=== PATIENT | female | born 2000 | race Caucasian/White ===

== ENCOUNTER 2021-05-19 11:47 | Emergency (ER) | payer SELFPAY ==
[~2021-05-19] VITALS: Ht 170 cm; Wt 54.0 kg
[2021-05-19 12:10] VITALS: BP 131/88
[2021-05-19] MEDS ORDERED: PRD50T PO ×5 (12:38→13:07)
[2021-05-19] MEDS ORDERED: AZIT250T12 PO ×5 (12:38→13:07)
--- NOTE | 2021-05-19 12:38 | ED Cough/URI ---
General Chief Complaint: Cough/Cold/Flu Symptoms Stated Complaint: CONGESTION, SOB Nursing Triage Note: ARRIVED VIA AMB TO TRIAGE. COLD LIKE SX SINCE THRUSDAY. THINKS IT IS ALLERGIES. DENIES FEVER. Source: patient Exam Limitations: no limitations (CAMERON OROPEZA) History of Present Illness Date Seen by Provider: May 19, 2021 Time Seen by Provider: 12:34 Initial Comments Patient is a 21-year-old female who presents ED with cough, shortness of breath, nasal congestion, sinus pressure. She reports symptoms over the past 2 to 3 days. History of asthma. Has been using her nebulizer treatment with improvement. She does have some chest tightness with worsening cough at night. Mild wheezing. Denies fever, vomiting, diarrhea, body aches. She reports similar symptoms in the past that usually exacerbates her asthma. She refusing any Covid or influenza swab at this time. Did discuss breathing treatment to help with her wheezing and chest tightness patient refused and states she has nebulizer treatment at home. Requesting a steroid and antibiotic as this typically improves her symptoms. Denies headache, dizziness, visual changes, sore throat, ear pain, Pedro pain or concern for . (CAMERON OROPEZA) Allergies and Home Medications Allergies Coded Allergies: No Known Drug Allergies (Unverified , 05/19/21) Patient Home Medication List Home Medication List Reviewed: Yes (CAMERON OROPEZA) Azithromycin (Azithromycin) 250 Mg Tablet, 250 MG PO UD Prescribed by: JAMESON LEMON on 05/19/21 1307 Prednisone (Prednisone) 50 Mg Tab, 50 MG PO DAILY Prescribed by: JAMESON LEMON on 05/19/21 1307 Discontinued Medications Azithromycin (Azithromycin) 250 Mg Tablet, 250 MG PO UD Prescribed by: JAMESON LEMON on 05/19/21 1238 Azithromycin (Azithromycin) 250 Mg Tablet, 250 MG PO UD Prescribed by: JAMESON LEMON on 05/19/21 1242 Prednisone (Prednisone) 50 Mg Tab, 50 MG PO DAILY Prescribed by: JAMESON LEMON on 05/19/21 1238 Prednisone (Prednisone) 50 Mg Tab, 50 MG PO DAILY Prescribed by: JAMESON LEMON on 05/19/21 1242 Review of Systems Review of Systems Constitutional: No chills, No fever, No malaise, No weakness EENTM: nose congestion; No ear pain, No blurred vision, No eye pain, No vision loss Respiratory: cough, short of breath, wheezing Cardiovascular: No chest pain, No edema, No Hx of Intervention Gastrointestinal: No abdominal pain, No diarrhea, No nausea, No vomiting Genitourinary: No decreased output, No discharge Musculoskeletal: No back pain, No joint pain Skin: No see HPI, No change in color, No change in hair/nails (CAMERON OROPEZA) All Other Systems Reviewed Negative Unless Noted: Yes (CAMERON OROPEZA) Past Uvicver-Cbinle-Gizctt Hx Patient Social History Smoking Status: Never a Smoker Substance use?: No Alcohol Use?: No (CAMERON OROPEZA) Physical Exam Vital Signs - First Documented 05/19/21 12:10 Temp 36.7 Pulse 93 Resp 16 B/P (MAP) 131/88 (102) Pulse Ox 93 O2 Delivery Room Air (KATHRINE LEIGH MD) Capillary Refill : Less Than 3 Seconds (CAMERON OROPEZA) Height: '" Weight: lbs. oz. kg; 18.00 BMI Method: General Appearance: WD/WN, no apparent distress HEENT: PERRL/EOMI, normal ENT inspection, TMs normal, pharynx normal Neck: non-tender, full range of motion, supple Respiratory: chest non-tender, lungs clear, no respiratory distress, no access ory muscle use, wheezing Cardiovascular: no edema, no gallop, no JVD Gastrointestinal: normal bowel sounds, non tender, soft, no organomegaly Extremities: normal range of motion, non-tender, normal inspection, no pedal edema Skin: normal color, warm/dry (CAMERON OROPEZA) Progress/Results/Core Measures Suspected Sepsis SIRS Temperature: Pulse: 93 Respiratory Rate: 16 Blood Pressure 131 /88 Mean: 102 (CAMERON OROPEZA) Results/Orders Vital Signs/I&O 05/19/21 12:10 Temp 36.7 Pulse 93 Resp 16 B/P (MAP) 131/88 (102) Pulse Ox 93 O2 Delivery Room Air (KATHRINE LEIGH MD) Vital Signs/I&O Capillary Refill : Less Than 3 Seconds (CAMERON OROPEZA) Blood Pressure Mean: 102 Departure Communication (Admissions) Patient with mild wheezing throughout. Recommended albuterol nebulizer treatment and to check for Covid. She refused at this time. She does states she has nebulizers at home that she has been using with improvement. Concerning for asthma exacerbation. She is requesting prednisone and Z-Maxime as she has a history of bronchitis and pneumonia. Discussed with patient this is likely viral in nature and would likely benefit with steroids and continue breathing treatments. Discussed outpatient swab to rule out Covid or influenza. Continue with nebulizer treatments. She does have a rescue inhaler. Will discharge with Z-Maxime for worsening symptoms. Return precaution were discussed with patient. He was slightly tachycardic but was not hypoxic. Wheezing noted throughout. No respiratory distress (CAMERON OROPEZA) Impression Primary Impression: Upper respiratory infection Additional Impression: Asthma Disposition: HOME, SELF-CARE Condition: Stable Departure-Patient Inst. Decision time for Depature: 12:37 (CAMERON OROPEZA) Referrals: [facility] (PCP/Family) Primary Care Physician Patient Instructions: Asthma, Adult (DC), Upper Respiratory Infection ED Add. Discharge Instructions: If worsening shortness of breath and cough return back to ED for further evaluation All discharge instructions reviewed with patient and/or family. Voiced understjanie araujo. Scripts Prednisone (Prednisone) 50 Mg Tab 50 MG PO DAILY for 5 Days, #5 TAB Prov: CAMERON OROPEZA 05/19/21 Azithromycin (Azithromycin) 250 Mg Tablet 250 MG PO UD, #6 TAB TAKE 2 TABLETS ON DAY ONE THEN TAKE 1 TABLET DAILY FOR FOUR MORE DAYS Prov: CAMERON OROPEZA 05/19/21 ATTENDING PHYSICIAN NOTE: I was physically present as attending physician in the emergency department during the care of this patient, but I was not directly involved in the decision making or delivery of care for this patient. (KATHRINE LEIGH MD) CAMERON OROPEZA May 19, 2021 12:38 KATHRINE LEIGH MD May 19, 2021 20:16
== END 2021-05-19 13:20 | disposition home or self-care (01) ==
LOC: ER 11:51
DX: J06.9 Acute upper respiratory infection, unspecified (principal); J45.909 Unspecified asthma, uncomplicated
CPT/HCPCS: 99283

== ENCOUNTER 2023-05-09 13:57 | Inpatient (IN) | payer OTHER ==
[~2023-05-09] VITALS: Ht 167 cm; Wt 54.0 kg
[~2023-05-09 13:57] MED LIST: AZIT250T12 PO; PRD50T PO
[2023-05-09] MEDS ORDERED: NS IV 1000 ML 1,000 ML IV STA (14:15)
[2023-05-09 14:24] LABS: BASOPHILS # (AUTO) 0.1 10^3/uL (0.0-0.1); BASOPHILS % (AUTO) 1 % (0-10); EOSINOPHILS # (AUTO) 0.1 10^3/uL (0.0-0.3); EOSINOPHILS % (AUTO) 0 % (0-10); HEMATOCRIT 47 % (35-52); HEMOGLOBIN 16.8 g/dL (11.5-16.0); LYMPHOCYTES % (AUTO) 15 % (12-44); MEAN CORPUSCULAR HEMOGLOBIN 32 pg (25-34); MEAN CORPUSCULAR HGB CONC 36 g/dL (32-36); MEAN CORPUSCULAR VOLUME 91 fL (80-99); MEAN PLATELET VOLUME 11.1 fL (9.0-12.2); MONOCYTES # (AUTO) 1.1 10^3/uL (0.0-1.0); MONOCYTES % (AUTO) 8 % (0-12); NEUTROPHILS # (AUTO) 10.1 10^3/uL (1.8-7.8); NEUTROPHILS % (AUTO) 76 % (42-75); PLATELET COUNT 335 10^3/uL (130-400); WHITE BLOOD COUNT 13.3 10^3/uL (4.3-11.0)
[2023-05-09] MEDS ORDERED: LACTATED RINGERS 1,000 ML 1,000 ML IV STA ×2 (14:24→14:46)
--- NOTE | 2023-05-09 14:24 | ED General ---
General Chief Complaint: General Problems/Pain Stated Complaint: SOA/WEAKNESS/HIGH HEART RATE Nursing Triage Note: PT SENT TO THIS ED W/ C/O SOB, VASQUEZ ET WEAKNESS ONSET X2 MOS, WORSE TODAY. PT REPORTS 20# WEIGHT LOSS, INCREASED THIRST ET APPETITE. NO OTHER C/O VOICED Source of Information: Patient Exam Limitations: No Limitations History of Present Illness Date Seen by Provider: May 09, 2023 Time Seen by Provider: 14:22 Initial Comments Patient is a 23-year-old female who presents to ED for short of breath, chest tightness, headache, weakness. Patient states this morning she woke up started feeling shortness of breath and chest tightness with exertion. She noted her heart rate to be fast. She states states she has noted a 20 pound weight loss over the past month. Increased thirst. Increased urination. She states she has been attempting to eat and drink. She was seen at [facility] and was sent to the ED for further evaluation. Recently traveled from [place] for [employer]. She found to have a blood sugar over 400 here in the ED. She denies of any current chest pain or shortness of breath. No cough, flulike symptoms. No history of cancer. Family history of diabetes. She denies of any current chest pain, Pedro pain, visual changes, unilateral muscle weakness, vomiting, diarrhea, or sensory changes. Last menstrual cycle was late last month. She states she had a negative COVID influenza. Allergies and Home Medications Allergies Coded Allergies: No Known Drug Allergies (Unverified , 05/19/21) Patient Home Medication List Home Medication List Reviewed: Yes Azithromycin (Azithromycin) 250 Mg Tablet, 250 MG PO UD Prescribed by: JAMESON LEMON on 05/19/21 5707 Prednisone (Prednisone) 50 Mg Tab, 50 MG PO DAILY Prescribed by: JAMESON LEMON on 05/19/21 1307 Review of Systems Review of Systems Constitutional: No chills, No diaphoresis, No fever; malaise, weakness EENTM: No hearing loss, No ear pain, No double vision Respiratory: No cough, No dyspnea on exertion; short of breath Cardiovascular: chest pain Gastrointestinal: No abdominal pain, No diarrhea, No nausea, No vomiting Genitourinary: No decreased output, No discharge, No dysuria; frequency Musculoskeletal: No back pain Skin: No change in color All Other Systems Reviewed Negative Unless Noted: Yes Past Mluedtv-Iveedc-Ukrtsm Hx Patient Social History Tobacco Use?: No Use of E-Cig and/or Vaping dev: No Substance use?: No Alcohol Use?: Yes Alcohol Frequency: Once in a while Pt feels they are or have been: No Physical Exam Vital Signs Vital Signs - First Documented 05/09/23 14:03 Temp 36.7 Pulse 144 Resp 24 B/P (MAP) 142/104 (117) Pulse Ox 94 O2 Delivery Room Air Capillary Refill : Less Than 3 Seconds Height, Weight, BMI Height: '" Weight: lbs. oz. kg; 19.00 BMI Method: General Appearance: No Apparent Distress, WD/WN Eyes: Bilateral Eye Normal Inspection, Bilateral Eye PERRL, Bilateral Eye EOMI HEENT: PERRL/EOMI, TMs Normal, Normal ENT Inspection, Pharynx Normal Neck: Full Range of Motion, Normal Inspection, Non Tender, Supple Respiratory: Chest Non Tender, Lungs Clear, Normal Breath Sounds, No Accessory Muscle Use, No Respiratory Distress Cardiovascular: No Gallop, No JVD, No Murmur, Tachycardia Gastrointestinal: Normal Bowel Sounds, No Organomegaly, No Pulsatile Mass, Non Tender Back: Normal Inspection, No CVA Tenderness Extremity: Normal Capillary Refill, Normal Inspection, Normal Range of Motion, Non Tender Neurologic/Psychiatric: Alert, Oriented x3, No Motor/Sensory Deficits, Normal Mood/Affect, 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 Skin: Normal Color, Warm/Dry Focused Exam Lactate Level 05/09/23 14:13: Lactic Acid Level 1.51 Lactic Acid Level Laboratory Tests Test 05/09/23 14:13 Lactic Acid Level 1.51 MMOL/L (0.50-2.00) Progress/Results/Core Measures Suspected Sepsis SIRS Temperature: Pulse: 144 Respiratory Rate: 24 Laboratory Tests 05/09/23 14:13: White Blood Count 13.3H Blood Pressure 142 /104 Mean: 117 05/09/23 14:13: Lactic Acid Level 1.51 Laboratory Tests 05/09/23 14:13: Creatinine 1.09, Platelet Count 335, Total Bilirubin 0.6 Results/Orders Lab Results Laboratory Tests Test 05/09/23 14:13 05/09/23 14:30 05/09/23 15:36 Range/Units White Blood Count 13.3 H 4.3-11.0 10^3/uL Red Blood Count 5.18 H 3.80-5.11 10^6/uL Hemoglobin 16.8 H 11.5-16.0 g/dL Hematocrit 47 35-52 % Mean Corpuscular Volume 91 80-99 fL Mean Corpuscular Hemoglobin 32 25-34 pg Mean Corpuscular Hemoglobin Concent 36 32-36 g/dL Red Cell Distribution Width 11.8 10.0-14.5 % Platelet Count 335 130-400 10^3/uL Mean Platelet Volume 11.1 9.0-12.2 fL Immature Granulocyte % (Auto) 1 % Neutrophils (%) (Auto) 76 H 42-75 % Lymphocytes (%) (Auto) 15 12-44 % Monocytes (%) (Auto) 8 0-12 % Eosinophils (%) (Auto) 0 0-10 % Basophils (%) (Auto) 1 0-10 % Neutrophils # (Auto) 10.1 H 1.8-7.8 10^3/uL Lymphocytes # (Auto) 2.0 1.0-4.0 10^3/uL Monocytes # (Auto) 1.1 H 0.0-1.0 10^3/uL Eosinophils # (Auto) 0.1 0.0-0.3 10^3/uL Basophils # (Auto) 0.1 0.0-0.1 10^3/uL Immature Granulocyte # (Auto) 0.1 0.0-0.1 10^3/uL Sodium Level 131 L 135-145 MMOL/L Potassium Level 3.6 3.6-5.0 MMOL/L Chloride Level 106 98-107 MMOL/L Carbon Dioxide Level 5 *L 21-32 MMOL/L Anion Gap 20 H 5-14 MMOL/L Blood Urea Nitrogen 5 L 7-18 MG/DL Creatinine 1.09 0.60-1.30 MG/DL Estimat Glomerular Filtration Rate 73 BUN/Creatinine Ratio 5 Glucose Level 413 *H 70-105 MG/DL Glucometer 403 *H 350 H 70-110 MG/DL Lactic Acid Level 1.51 0.50-2.00 MMOL/L Calcium Level 8.7 8.5-10.1 MG/DL Corrected Calcium 8.5-10.1 MG/DL Magnesium Level 2.0 1.6-2.4 MG/DL Total Bilirubin 0.6 0.1-1.0 MG/DL Aspartate Amino Transf (AST/SGOT) 14 5-34 U/L Alanine Aminotransferase (ALT/SGPT) 16 0-55 U/L Alkaline Phosphatase 94 40-136 U/L Troponin I < 0.028 <0.028 NG/ML C-Reactive Protein High Sensitivity 0.17 0.00-0.50 MG/DL Total Protein 8.7 H 6.4-8.2 GM/DL Albumin 4.9 H 3.2-4.5 GM/DL Lipase 27 8-78 U/L Beta-Hydroxybutyrate (Chem panel) 8.20 H 0.00-0.27 MMOL/L Thyroid Stimulating Hormone (TSH) 1.20 0.35-4.94 UIU/ML Urine Color YELLOW Urine Clarity CLEAR Urine pH 5.0 5-9 Urine Specific Kennan >=1.030 1.016-1.022 Urine Protein 3+ H NEGATIVE Urine Glucose (UA) 2+ H NEGATIVE Urine Ketones 4+ H NEGATIVE Urine Nitrite NEGATIVE NEGATIVE Urine Bilirubin 1+ H NEGATIVE Urine Urobilinogen 0.2 < = 1.0 MG/DL Urine Leukocyte Esterase NEGATIVE NEGATIVE Urine RBC (Auto) 2+ H NEGATIVE Urine RBC 5-10 H /HPF Urine WBC 10-25 H /HPF Urine Squamous Epithelial Cells 0-2 /HPF Urine Crystals NONE /LPF Urine Bacteria FEW H /HPF Urine Casts PRESENT /LPF Urine Hyaline Casts 0-2 H /LPF Urine Granular Casts 2-5 H /LPF Urine Mucus NEGATIVE /LPF Urine Culture Indicated YES Urine Test NEGATIVE NEGATIVE Arterial Blood pH 7.15 *L 7.37-7.43 Arterial Blood Partial Pressure CO2 12 *L 35-45 MMHG Arterial Blood Partial Pressure O2 71 L 79-93 MMHG Arterial Blood HCO3 4 *L 23-27 MMOL/L Arterial Blood Total CO2 4.6 *L 21.0-31.0 MMOL/L Arterial Blood Oxygen Saturation 96 94-100 % Arterial Blood Base Excess -22.2 L -2.5-2.5 MMOL/L Blood Gas Ventilator Setting NO Blood Gas Inspired Oxygen UNK Urine Opiates Screen NEGATIVE NEGATIVE Urine Oxycodone Screen NEGATIVE NEGATIVE Urine Methadone Screen NEGATIVE NEGATIVE Urine Barbiturates Screen NEGATIVE NEGATIVE Ur Tricyclic Antidepressants Screen NEGATIVE NEGATIVE Urine Phencyclidine Screen NEGATIVE NEGATIVE Urine Amphetamines Screen NEGATIVE NEGATIVE Urine Methamphetamines Screen NEGATIVE NEGATIVE Urine Benzodiazepines Screen NEGATIVE NEGATIVE Urine Cocaine Screen NEGATIVE NEGATIVE Urine Cannabinoids Screen NEGATIVE NEGATIVE Micro Results Microbiology 05/09/23 Blood Culture - Preliminary, Resulted My Orders Orders - CAMERON OROPEZA PA Arterial Blood Gas (05/09/23 14:10) Accucheck Stat ONCE (05/09/23 14:13) Ekg Tracing (05/09/23 14:13) Cbc And Automated Diff (05/09/23 14:15) Comprehensive Metabolic Panel (05/09/23 14:15) Lipase (05/09/23 14:15) Beta Hydroxybutyrate (05/09/23 14:15) Urinalysis (05/09/23 14:15) Hcg,Qualitative Urine (05/09/23 14:15) Hs C Reactive Protein (05/09/23 14:15) Lactic Acid Analyzer (05/09/23 14:15) Ns Iv 1000 Ml (Ns Iv 1000 Ml) (05/09/23 14:15) Magnesium (05/09/23 14:15) Chest 1 View, Ap/Pa Only (05/09/23 14:15) Drug Screen Stat (Urine) (05/09/23 14:21) Lactated Ringers 1,000 Ml (Lactated Ring (05/09/23 14:24) Thyroid Stimulating Hormone (05/09/23 14:26) Blood Culture (05/09/23 14:26) Troponin I Radha (05/09/23 14:27) Arterial Blood Draw - Obtain (05/09/23 ) Lactated Ringers 1,000 Ml (Lactated Ring (05/09/23 14:46) Urine Culture (05/09/23 14:30) Ceftriaxone Iv/Im (Ceftriaxone Iv/Im) (05/09/23 14:56) Lactated Ringers 1,000 Ml (Lactated Ring (05/09/23 15:12) Vital Signs/I&O 05/09/23 14:03 Temp 36.7 Pulse 144 Resp 24 B/P (MAP) 142/104 (117) Pulse Ox 94 O2 Delivery Room Air Capillary Refill : Less Than 3 Seconds Blood Pressure Mean: 117 Departure Communication (PCP) Patient is a 23-year-old female presents to ED for frequent urination, weight loss over the past month, shortness of breath and chest tightness today. Chest tightness shortness of breath started this morning. She was found to be tachycardic at [facility] and sent to the ED. Patient with a heart rate of 130 to 140 bpm on arrival. She was not hypoxic. No recent long travels or surgeries. Denies of any leg pain. Patient is not on control. Low risk factors for PE. No recent cough or flulike symptoms. EKG sinus tachycardia 128 bpm. Chest x-ray negative for pneumonia, pneumothorax. She does appear thin habitus. Blood sugar over 400 on arrival. DKA workup was initiated. EKG and chest x-ray for chest pain. She tested negative for COVID influenza at the clinic. She does not currently have a primary care physician. CBC of 13. Normal hemoglobin. Chemistry showed sodium 131. Anion gap of 20. Normal kidney function liver function and lactic acid. Beta hydroxybutyrate of 8. ABG was ordered. pH of 7.15, pCO2 12, bicarb of 4. Patient appears to be in DKA. Urinalysis positive for ketones and blood sugar. Questionable UTI. Did receive Rocephin 1gm and pending blood culture. Started IV hydration at this time. patient was discussed with Dr. Villa hospitalist who agreed to accept the patient to ICU. Will start on insulin drip upstairs. Patient agrees with plan of action. Patient heart rate did improve into the teens. Normal blood pressure. Oxygen 100 percent on room air. Impression Primary Impression: DKA (diabetic ketoacidosis) Disposition: ADMITTED INPATIENT Condition: Stable Admissions Decision to Admit Reason: Admit from ER (General) Decision to Admit/Date: May 09, 2023 Time/Decision to Admit Time: 15:14 Departure-Patient Inst. Referrals: [facility] (PCP/Family) Primary Care Physician CAMERON OROPEZA May 09, 2023 14:24
[2023-05-09 14:35] LABS: ALBUMIN 4.9 GM/DL (3.2-4.5); CHLORIDE 106 MMOL/L (98-107); POTASSIUM 3.6 MMOL/L (3.6-5.0); SODIUM 131 MMOL/L (135-145)
[2023-05-09 14:36] LABS: CALCIUM 8.7 MG/DL (8.5-10.1)
[2023-05-09 14:37] LABS: TOTAL PROTEIN 8.7 GM/DL (6.4-8.2)
[2023-05-09 14:39] LABS: BILIRUBIN,TOTAL 0.6 MG/DL (0.1-1.0)
[2023-05-09 14:39] LABS: ABG BASE EXCESS -22.2 MMOL/L (-2.5-2.5); ABG OXYGEN SATURATION 96 % (94-100); ABG PO2 71 MMHG (79-93)
[2023-05-09 14:41] LABS: ALKALINE PHOSPHATASE 94 U/L (40-136); CREATININE SERUM 1.09 MG/DL (0.60-1.30)
[2023-05-09 14:41] LABS: ABG PCO2 12 MMHG (35-45); ABG PH 7.15 (7.37-7.43)
[2023-05-09 14:42] LABS: ABG TCO2 4.6 MMOL/L (21.0-31.0); VENTILATOR NO
[2023-05-09 14:42] LABS: BUN/CREATININE RATIO 5
[2023-05-09 14:43] LABS: CARBON DIOXIDE 5 MMOL/L (21-32); GLUCOSE 413 MG/DL (70-105)
[2023-05-09 14:44] LABS: ALANINE AMINOTRANSFERASE 16 U/L (0-55); GFR ESTIMATED 73
[2023-05-09 14:45] LABS: LIPASE 27 U/L (8-78)
--- NOTE | 2023-05-09 14:46 | Diagnostic Imaging Report ---
EXAMINATION: Chest 1 view HISTORY: Chest pain, shortness of breath. COMPARISON: None available. FINDINGS: Heart size and pulmonary vasculature are normal. The lungs are clear without consolidation, pleural effusion, or pneumothorax. The osseous structures are intact. IMPRESSION: 1. No acute radiographic abnormality in the chest. Dictated by: Dictated on workstation # [id number]
[2023-05-09 14:52] LABS: CLARITY,URINE CLEAR; COLOR,URINE YELLOW
[2023-05-09 14:53] LABS: BACTERIA,URINE FEW /HPF; BILIRUBIN,URINE 1+ (NEGATIVE); GLUCOSE, URINE (UA) 2+ (NEGATIVE); HYALINE CASTS, URINE 0-2 /LPF; KETONES,URINE 4+ (NEGATIVE); LEUKOCYTE ESTERASE ,URINE NEGATIVE (NEGATIVE); NITRITE,URINE NEGATIVE (NEGATIVE); PROTEIN,URINE 3+ (NEGATIVE); SQUAMOUS EPITHELIAL CELL,UR 0-2 /HPF
[2023-05-09 14:54] LABS: HCG,QUALITATIVE URINE NEGATIVE (NEGATIVE)
[2023-05-09] MEDS ORDERED: cefTRIAXone IV/IM 1,000 MG in NS (IVPB) 50 ML 50 ML IV STA (14:56)
[2023-05-09 14:57] LABS: AMPHETAMINE SCREEN, URINE NEGATIVE (NEGATIVE); BARBITURATE SCREEN URINE NEGATIVE (NEGATIVE); CANNABINOID SCREEN, URINE NEGATIVE (NEGATIVE); COCAINE SCREEN URINE NEGATIVE (NEGATIVE); METHADONE STAT NEGATIVE (NEGATIVE); OPIATE SCREEN URINE NEGATIVE (NEGATIVE); OXYCODONE STAT NEGATIVE (NEGATIVE); TRICYCLIC ANTIDEPRESSANTS SCRE NEGATIVE (NEGATIVE)
[2023-05-09] MEDS ORDERED: LACTATED RINGERS 1,000 ML 1,000 ML IV ONE (15:12)
[2023-05-09 16:13] VITALS: BP 122/88
[2023-05-09] MEDS ORDERED: NS IV 1000 ML 1,000 ML IV SCH ×2 (16:15→16:45)
--- NOTE | 2023-05-09 16:42 | Tele-ICU Progress Note ---
Subjective Date Seen by a Provider: May 09, 2023 Time Seen by a Provider: 16:42 Subjective/Events-last exam (Tele-ICU Physician , consultation as per request of PCP Service provided via interactive audio and video telecommunications E-CARE system to a patient admitted to ICU bed in [facility]. Available chart/ vitals / labs / Images reviewed H&P is from ER notes Patient's information available about PMH, Shx, Fhx allergy reviewed inEMR. ROS as per chart and RN report Now in ICU, hemodynamically stable Video assessment done using teleICU camera, rest of exam as per RN Discussed with RN. Hospital course: DKA , newlly dx DM *Insulin drip, continue to monitor for resolution of acidosis, AG and electrolytes. Continue hydration. Leukocytosis - possible UT - empiric ABX given PseudoHyponatremia, dehydration - follow with IVF VTE Prophylaxis: Stress Ulcer Prophylaxis: Plans in collaboration with bedside consultants and IM MDs. Discussed with RN to reach out if any questions or concerns A total of10 minutes of critical care time was devoted to this patient today, required to treat and/or prevent further deterioration of critical care condition ( as above ) I am remotely monitoring this patient from another state. I am unable to do the bedside exam, and history/physical and pertinent information is taken from other notes in the computer and bedside staff. . Sepsis Event Evaluation Height, Weight, BMI Height: '" Weight: lbs. oz. kg; 19.00 BMI Method: Focused Exam Lactate Level 05/09/23 14:13: Lactic Acid Level 1.51 Lactic Acid Level Laboratory Tests Test 05/09/23 14:13 Lactic Acid Level 1.51 MMOL/L (0.50-2.00) Exam Exam Patient acknowledged, consented, and participated in this virtual visit which was conducted using real time audio/video Vital Signs Date Time Temp Pulse Resp B/P (MAP) Pulse Ox O2 Delivery O2 Flow Rate FiO2 05/09/23 16:32 36.6 05/09/23 16:24 127 05/09/23 16:13 122 20 122/88 99 Room Air 05/09/23 14:03 36.7 144 24 142/104 (117) 94 Room Air Height & Weight Height: '" Weight: lbs. oz. 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
[2023-05-09 16:47] LABS: HEMATOCRIT 41 % (35-52); HEMOGLOBIN 14.9 g/dL (11.5-16.0); MEAN CORPUSCULAR HEMOGLOBIN 33 pg (25-34); MEAN CORPUSCULAR HGB CONC 36 g/dL (32-36); MEAN CORPUSCULAR VOLUME 90 fL (80-99); MEAN PLATELET VOLUME 11.2 fL (9.0-12.2); PLATELET COUNT 229 10^3/uL (130-400); WHITE BLOOD COUNT 10.4 10^3/uL (4.3-11.0)
[2023-05-09] MEDS: POTASSIUM CL 10MEQ/50ML IVPB 50 ML IV SCH ×4 (16:55→20:21)
[2023-05-09] MEDS: D5 1/2 NS 1,000 ML IV 1,000 ML IV SCH (16:57)
[2023-05-09] MEDS: 1/2 NS IV SOLUTION 1000 ML 1,000 ML IV SCH (16:57)
[2023-05-09 18:33] LABS: BUN/CREATININE RATIO 5; CALCIUM 7.6 MG/DL (8.5-10.1); CHLORIDE 113 MMOL/L (98-107); CREATININE SERUM 0.87 MG/DL (0.60-1.30); GFR ESTIMATED 96; GLUCOSE 340 MG/DL (70-105); PHOSPHORUS 2.3 MG/DL (2.3-4.7); POTASSIUM 3.6 MMOL/L (3.6-5.0); SODIUM 136 MMOL/L (135-145)
[2023-05-09 18:46] LABS: CARBON DIOXIDE < 5 MMOL/L (21-32)
[2023-05-09] MEDS ORDERED: CATHETER FLUSH 10 ML SYR IVP PRN (20:30)
[2023-05-09] MEDS ORDERED: cefTRIAXone IV/IM 1,000 MG in NS (IVPB) 50 ML 50 ML IV SCH (21:00)
[2023-05-09 21:02] LABS: POTASSIUM 3.2 MMOL/L (3.6-5.0)
[2023-05-09 21:03] LABS: CALCIUM 7.4 MG/DL (8.5-10.1)
[2023-05-09 21:07] LABS: CREATININE SERUM 1.02 MG/DL (0.60-1.30)
[2023-05-09] MEDS: CATHETER FLUSH 10 ML SYR IVP SCH (22:00)
[2023-05-10] MEDS: POTASSIUM CL 10MEQ/50ML IVPB 50 ML IV SCH ×9 (00:28→19:13)
[2023-05-10] MEDS: 1/2 NS IV SOLUTION 1000 ML 1,000 ML IV SCH ×7 (00:56→22:25)
[2023-05-10] MEDS: D5 1/2 NS 1,000 ML IV 1,000 ML IV SCH ×3 (01:11→08:52)
[2023-05-10 01:12] LABS: CALCIUM 7.6 MG/DL (8.5-10.1)
[2023-05-10 01:16] LABS: CREATININE SERUM 0.73 MG/DL (0.60-1.30)
[2023-05-10 05:18] LABS: POTASSIUM 2.9 MMOL/L (3.6-5.0)
[2023-05-10 05:19] LABS: CALCIUM 7.4 MG/DL (8.5-10.1)
[2023-05-10 05:24] LABS: CREATININE SERUM 0.65 MG/DL (0.60-1.30)
[2023-05-10] MEDS ORDERED: POTASSIUM CL 10MEQ/50ML IVPB 400 ML IV ONE (05:25)
[2023-05-10] MEDS ORDERED: NS IV 500 ML 500 ML IV PRN (05:30)
[2023-05-10 05:37] LABS: BASOPHILS % (AUTO) 1 % (0-10); EOSINOPHILS # (AUTO) 0.2 10^3/uL (0.0-0.3); EOSINOPHILS % (AUTO) 3 % (0-10); HEMATOCRIT 31 % (35-52); HEMOGLOBIN 11.7 g/dL (11.5-16.0); LYMPHOCYTES # (AUTO) 1.7 10^3/uL (1.0-4.0); LYMPHOCYTES % (AUTO) 25 % (12-44); MEAN CORPUSCULAR HEMOGLOBIN 33 pg (25-34); MEAN CORPUSCULAR HGB CONC 38 g/dL (32-36); MEAN CORPUSCULAR VOLUME 87 fL (80-99); MEAN PLATELET VOLUME 11.6 fL (9.0-12.2); MONOCYTES # (AUTO) 0.7 10^3/uL (0.0-1.0); MONOCYTES % (AUTO) 10 % (0-12); NEUTROPHILS # (AUTO) 4.2 10^3/uL (1.8-7.8); NEUTROPHILS % (AUTO) 61 % (42-75); PLATELET COUNT 206 10^3/uL (130-400); WHITE BLOOD COUNT 6.9 10^3/uL (4.3-11.0)
[2023-05-10] MEDS ORDERED: MAGNESIUM 1 GM/100 ML IVPB 600 ML IV ONE (05:51)
[2023-05-10] MEDS: MAGNESIUM 1 GM/100 ML IVPB 100 ML IV SCH ×5 (06:03→19:13)
[2023-05-10] MEDS: CATHETER FLUSH 10 ML SYR IVP SCH ×3 (06:04→22:25)
[2023-05-10] MEDS: POTASSIUM CHLORIDE 20 MEQ TABLET PO SCH (07:00)
--- NOTE | 2023-05-10 09:19 | History & Physical-Hospitalist ---
History of Present Illness HPI/Chief Complaint Patient is a 23-year-old female with no significant past medical history who presented to the emergency department due to fatigue, shortness of breath, weight loss. She reports her symptoms been going on for over a month and she has lost about 20 pounds. She now states that she is aware these are associated with diabetes but just thought that she had a cold or even COVID. She decided to see her doctor in [place] this week after the but kept getting worse yesterday and so her mom brought her to urgent care. She is found to be quite hyperglycemic and was sent to the emergency department from there. She was found to be in DKA here which is new onset. She was started on insulin drip and admitted to the ICU. This morning she reports feeling much better though is still tired. Source: patient Date Seen 05/10/23 Time Seen by a Provider: 09:14 Attending Physician [facility] PCP Admitting Physician: Cara Villa MD Attending Physician: Cara Villa MD Referring Physician Date of Admission May 09, 2023 at 15:57 Home Medications & Allergies Home Medications Reviewed patient Home Medication Reconciliation performed by pharmacy medication reconciliations bindery technician and/or nursing. Patients Allergies have been reviewed. Allergies Allergies Coded Allergies No Known Drug Allergies ([id number]/6/21) Past Gsobuaa-Vvmxgr-Burjqm Hx Patient Social History Marrital Status: Tobacco Use?: No Smoking Status: Never a Smoker Use of E-Cig and/or Vaping dev: Yes E-Cig or Vaping type used: Nicotine Use of E-Cig and/or Vaping Edwardo: Current Someday User Substance use?: No Alcohol Use?: Yes Alcohol Frequency: Rarely Pt feels they are or have been: No Immunizations Up To Date Tetanus Booster (TDap): Unknown Hepatitis A: Yes Hepatitis B: Yes Current Status status: No status: No Advance Directives: No Communicates: Verbally Primary Language: [place] Citizen Preferred Spoken Language: [place] Citizen Is interpretation needed?: No Sensory deficits: Vision impairment Implanted or Applied Medical D: None Review of Systems Constitutional: see HPI Physical Exam Physical Exam Vital Signs Vital Signs - First Documented 05/09/23 14:03 Temp 36.7 Pulse 144 Resp 24 B/P (MAP) 142/104 (117) Pulse Ox 94 O2 Delivery Room Air Capillary Refill : Less Than 3 Seconds Height, Weight, BMI Height: '" Weight: lbs. oz. kg; 19.21 BMI Method: General Appearance: No Apparent Distress, WD/WN Respiratory: Lungs Clear, No Respiratory Distress Cardiovascular: Regular Rate, Rhythm, No Murmur Gastrointestinal: Normal Bowel Sounds, Soft Neurologic/Psychiatric: Alert, Oriented x3 Results Results/Procedures Labs Laboratory Tests 05/09/23 14:13 05/09/23 16:32 05/09/23 20:37 05/10/23 00:48 05/10/23 04:15 Patient resulted labs reviewed. Imaging: Reviewed Imaging Report Imaging [facility], [place] NAME: [facility] REC#: [id number] PT STATUS: REG ER : 2000 PHYSICIAN: CAMERON OROPEZA ADMIT DATE: 05/09/23/ER Signed Date of Exam:05/09/23 CHEST 1 VIEW, AP/PA ONLY EXAMINATION: Chest 1 view HISTORY: Chest pain, shortness of breath. COMPARISON: None available. FINDINGS: Heart size and pulmonary vasculature are normal. The lungs are clear without consolidation, pleural effusion, or pneumothorax. The osseous structures are intact. IMPRESSION: 1. No acute radiographic abnormality in the chest. Dictated by: Dictated on workstation # [id number] Dict: 05/09/23 1444 Trans: 05/09/23 1500 CVB [id number] Interpreted by: ESTEPHANIA ANDUJAR DO Electronically signed by: ESTEPHANIA ANDUJAR DO 05/09/23 1500 Assessment/Plan Admission Diagnosis DKA Admission Status: Inpatient Order (span 2 midnights) Reason for Inpatient Admission: see below Assessment and Plan DKA Gap closed Transition to basal and bolus insulin Diabetes education Dietary education A1c pending Needs outpatient follow up MICHAEL SPENCER MD May 10, 2023 09:19
[2023-05-10] MEDS ORDERED: inSUlin DETERMIR 1 UNIT/0.01 ML (CHARGE PER UNIT) SQ NR (09:30)
--- NOTE | 2023-05-10 10:48 | Tele-ICU Progress Note ---
Subjective Date Seen by a Provider: May 10, 2023 Time Seen by a Provider: 10:48 Subjective/Events-last exam Tele-ICU Physician , Progress Note Service provided via interactive audio and video telecommunications [facility] to a patient admitted to ICU bed in [facility]. Patient is seen today due to persistent need of ICU care Available chart/ vitals / labs / Images reviewed Video assessment done using teleICU camera, rest of exam as per RN Discussed with RN Events overnight : Subjective: No major events overnight. Pt currently on Insulin gtt however AG has closed. Hospital course: 23 y/o F with no PMHx admitted for new onset hyperglcyemia/DKA A/P: DKA , newlly dx DM -Initial sugars >500s now AG closed -Will transition from Insulin drip to Glargine, continue to monitor for res olution of acidosis, AG and electrolytes. -Ok to start PO diet -Will need formal DM education Leukocytosis -Initially elevated to 13 now wnl. Likely 2/2 UTI -On Rocephin, ok to switch to PO Bactrim once tolerating diet PseudoHyponatremia: resolved, likely 2/2 hyperglceymia VTE Prophylaxis: NA Stress Ulcer Prophylaxis: NA Plans in collaboration with bedside consultants and IM MDs. Discussed with RN to reach out if any questions or concerns A total of 15 minutes of CC time was devoted to this patient today, required to treat and/or prevent further deterioration of critical care condition ( as above ) I am remotely monitoring this patient from another state. I am unable to do the bedside exam, and history/physical and pertinent information is taken from other notes in the computer and bedside staff. . Sepsis Event Evaluation Height, Weight, BMI Height: '" Weight: lbs. oz. kg; 19.21 BMI Method: Focused Exam Lactate Level 05/09/23 14:13: Lactic Acid Level 1.51 Exam Exam Patient acknowledged, consented, and participated in this virtual visit which was conducted using real time audio/video Vital Signs Date Time Temp Pulse Resp B/P (MAP) Pulse Ox O2 Delivery O2 Flow Rate FiO2 05/10/23 10:00 101 16 112/75 (87) 100 Room Air 05/10/23 09:00 101 15 115/79 (91) 99 Room Air 05/10/23 08:14 36.3 05/10/23 08:00 93 34 122/83 (96) 100 Room Air 05/10/23 08:00 99 Room Air 05/10/23 07:06 93 05/10/23 07:00 92 12 103/67 (79) 98 Room Air 05/10/23 06:00 87 12 109/74 (86) 98 Room Air 05/10/23 05:00 90 13 103/8 (39) 98 Room Air 05/10/23 04:00 91 13 102/66 (78) 98 05/10/23 03:41 37.0 05/10/23 03:41 100 Room Air 05/10/23 03:00 100 19 103/71 (82) 98 05/10/23 02:00 98 14 109/74 (86) 98 05/10/23 01:00 111 32 109/86 (94) 100 05/10/23 01:00 97 05/10/23 00:00 102 17 104/74 (84) 98 05/10/23 00:00 100 Room Air 05/09/23 23:40 36.7 05/09/23 23:00 112 26 105/69 (81) 99 Room Air 05/09/23 22:00 105 22 97/70 (79) 100 Room Air 05/09/23 21:00 108 12 104/78 (87) 100 Room Air 05/09/23 20:00 108 14 109/77 (88) 99 Room Air 05/09/23 20:00 100 Room Air 05/09/23 19:19 37.1 05/09/23 19:00 115 05/09/23 19:00 114 13 109/77 (88) 100 Room Air 05/09/23 18:00 130 31 123/82 (110) 100 Room Air 05/09/23 17:10 100 Room Air 05/09/23 17:00 124 17 113/88 (99) 99 Room Air 05/09/23 16:32 36.6 05/09/23 16:24 127 05/09/23 16:13 122 20 122/88 99 Room Air 05/09/23 14:03 36.7 144 24 142/104 (117) 94 Room Air I & O 05/10/23 06:59 Intake Total 6900 ml Balance 6900 ml Height & Weight Height: '" Weight: lbs. oz. kg; 19.21 BMI Method: General Appearance: No Apparent Distress, WD/WN HEENT: PERRL/EOMI, TMs Normal, Normal ENT Inspection, Pharynx Normal Neck: Full Range of Motion, Normal Inspection, Non Tender, Supple Respiratory: Lungs Clear, No Respiratory Distress Cardiovascular: Regular Rate, Rhythm, No Murmur Capillary Refill: Less Than 3 Seconds Extremity: Normal Capillary Refill, Normal Inspection, Normal Range of Motion, Non Tender Neurologic/Psychiatric: Alert, Oriented x3 Skin: Normal Color, Warm/Dry Results Lab Laboratory Tests 05/09/23 14:13 05/09/23 16:32 05/09/23 20:37 05/10/23 00:48 05/10/23 04:15 Assessment/Plan Assessment/Plan . BRY RAE MD May 10, 2023 10:48
[2023-05-10] MEDS ORDERED: FEXO180T84 PO (11:21)
[2023-05-10] MEDS: inSUlin ASPART 1 UNIT/0.01 ML (PER UNIT) SC SCH ×3 (11:46→21:11)
[2023-05-10 16:16] LABS: CALCIUM 7.9 MG/DL (8.5-10.1)
[2023-05-10 16:20] LABS: CREATININE SERUM 0.65 MG/DL (0.60-1.30)
[2023-05-10] MEDS: cefTRIAXone IV/IM 1,000 MG in NS (IVPB) 50 ML 50 ML IV SCH (16:24)
[2023-05-11] MEDS: 1/2 NS IV SOLUTION 1000 ML 1,000 ML IV SCH ×4 (01:24→12:45)
[2023-05-11 05:16] LABS: CALCIUM 7.8 MG/DL (8.5-10.1); CREATININE SERUM 0.64 MG/DL (0.60-1.30); POTASSIUM 2.7 MMOL/L (3.6-5.0)
[2023-05-11 05:20] LABS: HEMATOCRIT 32 % (35-52); HEMOGLOBIN 11.9 g/dL (11.5-16.0); MEAN CORPUSCULAR HEMOGLOBIN 32 pg (25-34); MEAN CORPUSCULAR HGB CONC 37 g/dL (32-36); MEAN CORPUSCULAR VOLUME 87 fL (80-99); MEAN PLATELET VOLUME 11.5 fL (9.0-12.2); PLATELET COUNT 195 10^3/uL (130-400); WHITE BLOOD COUNT 5.3 10^3/uL (4.3-11.0)
[2023-05-11] MEDS: POTASSIUM CL 10MEQ/50ML IVPB 50 ML IV SCH ×3 (05:55→07:36)
[2023-05-11] MEDS: POTASSIUM CHLORIDE 20 MEQ TABLET PO SCH (05:56)
[2023-05-11] MEDS: MAGNESIUM 1 GM/100 ML IVPB 100 ML IV SCH (05:57)
[2023-05-11] MEDS: inSUlin ASPART 1 UNIT/0.01 ML (PER UNIT) SC SCH ×2 (06:07→11:01)
[2023-05-11] MEDS: CATHETER FLUSH 10 ML SYR IVP SCH ×2 (06:08→14:00)
[2023-05-11] MEDS ORDERED: POTASSIUM CHLORIDE 20 MEQ TABLET PO ONE ×2 (08:15→10:30)
[2023-05-11] MEDS ORDERED: inSUlin DETERMIR 1 UNIT/0.01 ML (CHARGE PER UNIT) SQ ONE (09:00)
--- NOTE | 2023-05-11 09:37 | Discharge Summary ---
Diagnosis/Chief Complaint Date of Admission May 09, 2023 at 16:08 Date of Discharge Admission Diagnosis DKA [facility] Discharge Summary Discharge Physical Exam Allergies: Coded Allergies: No Known Drug Allergies (Unverified , 05/19/21) Vitals & I&Os Vital Signs Date Time Temp Pulse Resp B/P (MAP) Pulse Ox O2 Delivery O2 Flow Rate FiO2 05/11/23 09:00 92 16 101/66 (78) 98 Room Air 05/11/23 07:58 35.9 Hospital Course Labs (last 24 hrs) Laboratory Tests 05/10/23 10:41: Glucometer 235H 05/10/23 11:26: Glucometer 227H 05/10/23 15:47: Glucometer 170H 05/10/23 15:55: Sodium Level 136, Potassium Level 3.0L, Chloride Level 111H, Carbon Dioxide Level 15L, Anion Gap 10, Blood Urea Nitrogen 2L, Creatinine 0.65, Estimat Glomerular Filtration Rate 127, BUN/Creatinine Ratio 3, Glucose Level 192H, Calcium Level 7.9L, Beta-Hydroxybutyrate (Chem panel) 1.62H 05/10/23 20:43: Glucometer 263H 05/11/23 04:10: White Blood Count 5.3, Red Blood Count 3.70L, Hemoglobin 11.9, Hematocrit 32L, Mean Corpuscular Volume 87, Mean Corpuscular Hemoglobin 32, Mean Corpuscular Hemoglobin Concent 37H, Red Cell Distribution Width 11.7, Platelet Count 195, Mean Platelet Volume 11.5, Sodium Level 138, Potassium Level 2.7L, Chloride Level 109H, Carbon Dioxide Level 18L, Anion Gap 11, Blood Urea Nitrogen 4L, Creatinine 0.64, Estimat Glomerular Filtration Rate 127, BUN/Creatinine Ratio 6, Glucose Level 292H, Calcium Level 7.8L, Magnesium Level 2.1 Microbiology 05/09/23 MRSA Screen - Final, Complete MRSA not isolated 05/09/23 Urine Culture - Preliminary, Resulted Culture In Progress 05/09/23 Blood Culture - Preliminary, Resulted Patient resulted labs reviewed. Pending Labs Laboratory Tests 05/11/23 04:10: White Blood Count 5.3, Red Blood Count 3.70, Hemoglobin 11.9, Hematocrit 32, Mean Corpuscular Volume 87, Mean Corpuscular Hemoglobin 32, Mean Corpuscular Hemoglobin Concent 37, Red Cell Distribution Width 11.7, Platelet Count 195, Mean Platelet Volume 11.5, Sodium Level 138, Potassium Level 2.7, Chloride Level 109, Carbon Dioxide Level 18, Anion Gap 11, Blood Urea Nitrogen 4, Creatinine 0.64, Estimat Glomerular Filtration Rate 127, BUN/Creatinine Ratio 6, Glucose Level 292, Calcium Level 7.8, Magnesium Level 2.1 Imaging: Reviewed Imaging Report Discharge Home Medications: Active Scripts Active Reported Candida Allergy (Fexofenadine HCl) 180 Mg Tablet 180 Mg PO DAILY PRN Instructions to patient/family Please see electronic discharge instructions given to patient. MICHAEL SPENCER MD May 11, 2023 09:37
--- NOTE | 2023-05-11 09:54 | Discharge Inst-Simple/Standard ---
Discharge Inst-Standard Patient Instructions/Follow Up Plan of Care/Instructions/FU: Please continue to take your medications as written. Please follow up with your primary care doctor to follow up this hospital stay. Activity as Tolerated: Yes Discharge Diet: No Restrictions Return to The Hospital For: Chest pain, shortness of breath, fever, weakness, if you feel you are getting worse. MICHAEL SPENCER MD May 11, 2023 09:44
[2023-05-11] MEDS ORDERED: INSU100I14 SQ ×2 (09:59→11:19)
[2023-05-11] MEDS ORDERED: INSU100I88 SQ ×2 (09:59→11:19)
[2023-05-11] MEDS: cefTRIAXone IV/IM 1,000 MG in NS (IVPB) 50 ML 50 ML IV SCH (11:36)
== END 2023-05-11 15:15 | disposition home or self-care (01) | DRG 639 ==
LOC: EDUNIT# 13:57 → ER 14:02 → ICU 15:57 → OBSVTOIN 16:08 → ICU 05-10 14:52
PROVIDERS: ADMIT Internal Medicine; ATTEND Internal Medicine
DX: E11.10 Type 2 diabetes mellitus with ketoacidosis without coma (principal); F17.290 Nicotine dependence, other tobacco product, uncomplicated; H54.7 Unspecified visual loss; Z79.52 Long term (current) use of systemic steroids
CPT/HCPCS: 36415; 36600; 71045; 80048; 80053; 80306; 81000; 82010; 82805; 82947; 83036; 83605; 83690; 83735; 84100; 84443; 84484; 84703; 85025; 85027; 86141; 87040; 87081; 87088; 93005